=== PATIENT | female | born 1940 | race Caucasian/White ===

== ENCOUNTER 2020-12-24 10:16 | Day surgery (SDC) | payer MEDICARE, OTHER, SELFPAY ==
--- NOTE | 2020-12-20 10:56 | ANES_ITS ---
Date of service: 12/20/20 Time of Service: 10:56 Anesthesia Note Report Anesthesia Note: Referral for review of record by Preoperative nurse for upcoming cataract surgery. Reviewed [facility] chart. Reviewed referral documents from 2019 from [facility]. Patient with several longstanding systemic problems including CAD, paroxysmal Afib, COPD on chronic home O2 3- 4lpm, MALVIN with CPAP. Discussed plan with Inocencio Kruger TEACHING PASTOR, patient will be a local. Called the patient to discuss the plan, she states that her health has been stable and has recently lost about 35 pounds. I described the plan and the patient agrees, she states she normally asks for less anesthetic due to her health concerns. Patient denied any questions and agrees with the plan. Patient to be local only, she may proceed.
[2020-12-24 10:54] VITALS: BP 133/75; PULSE 59; RESP 18; TEMP 36.5; O2SAT 99
[2020-12-24] MEDS: Tropicam./Phenyleph. (1/2.5%) 5 ML BTL OS ×3 (11:02→11:12)
--- NOTE | 2020-12-24 11:10 | W.ANESPRE ---
General Info Date of Service Date Performed: 12/24/20 Height: 5 ft 3 in Weight: 110.9 kg Body Mass Index (BMI): 43.3 Surgical Procedure: Operation Date: 12/24/20 13:40 Proposed Procedures Side Surgeon p Cataract Extraction with IOL Implant Left Juan Carlos Jordan MD Meds Allergies and Home Medications Allergies Allergy/AdvReac Type Severity Reaction Status Date / Time erythromycin base Allergy Severe Other (See Unverified 12/20/20 15:20 Comment) gentamicin Allergy Severe Other (See Unverified 12/20/20 15:20 Comment) Penicillins Allergy Severe Hives Unverified 12/20/20 15:20 vancomycin Allergy Severe Other (See Unverified 12/20/20 15:20 Comment) Enviormental allergy Allergy Unknown Uncoded 12/20/20 10:07 Petroleum Smells Allergy Unknown Other (See Uncoded 12/20/20 15:20 Comment) Home Medication Medication Instructions Recorded acetaminophen 500 mg PO ONCE PRN 12/20/20 aspirin 81 mg PO DAILY 12/20/20 atorvastatin 40 mg PO DAILY 12/20/20 cholecalciferol (vitamin D3) 3,000 mcg PO DAILY 12/20/20 [Vitamin D3] cranberry 400 mg PO DAILY 12/20/20 cyanocobalamin (vitamin B-12) 1 tab PO DAILY 12/20/20 [Vitamin B-12] docusate sodium 300 mg PO DAILY 12/20/20 numraexvjbo-pizwmkhml-jbkmupjt 1 inh INHALATION DAILY 12/20/20 ipratropium-albuterol 3 ml INHALATION QID PRN 12/20/20 ketoconazole 1 applic TOPICAL BID 12/20/20 levothyroxine 25 mcg PO DAILY 12/20/20 levothyroxine 50 mcg PO DAILY 12/20/20 magnesium citrate 100 mg PO DAILY 12/20/20 mirabegron 50 mg PO DAILY 12/20/20 oxybutynin chloride 10 mg PO DAILY 12/20/20 pantoprazole 20 mg PO DAILY 12/20/20 potassium chloride 20 meq PO DAILY 12/20/20 torsemide 20 mg PO DAILY 12/20/20 verapamil 360 mg PO DAILY 12/20/20 warfarin 2.5 - 5 mg PO DIRECTED 12/20/20 albuterol 2 INHALATION PRN 12/24/20 dronedarone [Multaq] 400 mg PO BID 12/24/20 Current Visit Medications: Current Medications Generic Name Dose Route Start Last Admin Trade Name Freq PRN Reason Stop Dose Admin Acetaminophen 1,000 mg 12/24/20 06:00 Acetaminophen 500 Mg Tab PO Q4H PRN PRN Miscellaneous Medication 0 ml 12/24/20 06:00 Prednisolone 1%, Moxifloxacin 0.5%, Nepafenac 0.1% 5ml Btl OS DIRECTED FRITZ Miscellaneous Medication 0 ml 12/24/20 06:00 12/24/20 11:07 Tropicam./Phenyleph. (1/2.5%) 5 Ml Btl OS 1 drp DIRECTED FRITZ Administration Tetracaine HCl 0 ml 12/24/20 06:00 Tetracaine 0.5% 4 Ml Btl OS DIRECTED FRITZ PFSH Active Problems Active Problems: Problem Status Onset Code Nuclear sclerotic cataract of left eye H25.12 Cortical cataract of left eye H26.9 Medical History Medical History Anticoagulation goal of INR 2 to 3 Atrophic vaginitis Blood in stool CAD (coronary artery disease) Cardiac arrhythmia, unspecified CHF (congestive heart failure) Chronic cough Chronic GERD Chronic UTI Colon polyps Constipation COPD (chronic obstructive pulmonary disease) Depression Dermatitis Diabetes 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 Dysuria Elevated LFTs Emphysema of lung Encounter for comprehensive diabetic foot examination, type 1 diabetes mellitus Fracture of fifth toe, left, closed Hallux valgus Hammertoe HLD (hyperlipidemia) Hyperkeratosis Hypothyroidism Impaired gait and mobility ambulates with cane or walker Loss of balance Mixed stress and urge urinary incontinence Ocular inflammation Onychomycosis MALVIN treated with BiPAP Osteoarthritis Oxygen dependent 3 L at rest Paroxysmal A-fib Prediabetes 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 Sensorineural hearing loss Stenosis of foramen magnum Tracheobronchomalacia Trigger finger Vitamin D deficiency Surgical History Surgical History History of total left knee replacement (TKR) History of total right knee replacement (TKR) Hx of appendectomy Hx of cholecystectomy Hx of hysterectomy Hx of tonsillectomy Tobacco Smoking/Tobacco Use Status: Former Tobacco Use Alcohol Alcohol Intake: current Alcohol intake frequency: holidays/special occasions only Substance Use Substance use type: does not use Vital Signs and Lab Results Vital Signs Most Recent Vital Signs in EMR: Most Recent Vital Signs Temp Pulse Resp BP Pulse Ox 36.5 C 59 L 18 133/75 99 12/24/20 10:54 12/24/20 10:54 12/24/20 10:54 12/24/20 10:54 12/24/20 10:54 Lab Results Blood Type / Crossmatch: No Data to Display Complete Blood Count: No Data to Display Complete Metabolic Panel: No Data to Display Liver Function Panel: No Data to Display Coagulation Panel: No Data to Display Cardiac Panel: No Data to Display Arterial Blood Gas: No Data to Display Venous Blood Gas: No Data to Display Pancreas Panel: No Data to Display Thyroid Panel: No Data to Display Infectious Disease: No Data to Display Blood Cultures: No Data to Display Toxicology Panel: No Data to Display Anesthesia Assessment and Plan Anesthesia History Personal History: No History of Anesthesia Complications Family History: No Family History of Anesthesia Complications Exercise Tolerance Exercise Tolerance: Metabolic Equivalents<4 Pertinent Negatives Pertinent Negatives: No Symptoms of GERD Cardiac & Pulmonary Exam Cardiac Exam: Normal S1/S2 Heart Sounds Pulmonary Exam: Clear Bilateral Breath Sounds Airway Exam Known Difficult Airway: No Mallampati Class: 3 Mouth Opening: Normal (> 3cm) Thyromental Distance: Greater than 3 cm Neck Range of Motion: Full ROM Neck Circumference: Thick Teeth Condition: Normal Dentition ASA Classification ASA Score: ASA 3 Emergency Case?: No NPO Status NPO Status: NPO Clears >2 hours, Solids >8 hours Anesthesia Plan Resuscitation Status: Full Code Anesthesia Technique: MAC Anesthesia Airway Planned: Natural Airway Monitors Used: Standard Monitors
[2020-12-24 11:12] VITALS: BMI 43.3
[2020-12-24] MEDS: Povidone-Iodine Ophth 30 ML BTL (11:47)
[2020-12-24] MEDS: Tetracaine 0.5% 4 ML BTL OS (11:49)
[2020-12-24] MEDS: Lidocaine 2% Jelly 6 ML SYR (11:49)
[2020-12-24] MEDS: Lidocaine 1% Pres-Free 5 ML VIAL (11:54)
[2020-12-24] MEDS: Balanced Salt Soln.-PLUS 500 ML BAG (12:03)
[2020-12-24] MEDS: Duovisc Viscoelastic System EACH 1 EACH (12:05)
[2020-12-24 12:18] VITALS: BP 149/66; PULSE 63; RESP 18; TEMP 36.4; O2SAT 99
--- NOTE | 2020-12-24 12:20 | W.PM.DSUDISC ---
Discharge Plan Disposition Patient Disposition: HOME Condition: Good Discharge Details Attending Provider: Juan Carlos Jordan Primary Care Provider: Gaby Cotto Home Meds and New Rx's Prescriptions: No Action atorvastatin 40 mg tablet 40 mg PO DAILY RF: 0 ipratropium-albuterol 0.5 mg-3 mg(2.5 mg base)/3 mL Solution For Nebulization 3 ml INHALATION QID PRNRF: 0 torsemide 20 mg tablet 20 mg PO DAILY RF: 0 verapamil 360 mg capsule,ext rel. pellets 24 hr 360 mg PO DAILY RF: 0 oxybutynin chloride 10 mg Tablet Extended Release 24hr 10 mg PO DAILY RF: 0 acetaminophen 500 mg Tablet 500 mg PO ONCE PRNRF: 0 levothyroxine 25 mcg tablet 25 mcg PO DAILY RF: 0 pantoprazole 20 mg tablet,delayed release (DR/EC) 20 mg PO DAILY RF: 0 aspirin 81 mg Capsule,Delayed Release(Dr/Ec) 81 mg PO DAILY RF: 0 levothyroxine 50 mcg tablet 50 mcg PO DAILY RF: 0 warfarin 5 mg tablet 2.5 - 5 mg PO DIRECTED RF: 0 cranberry 400 mg Capsule 400 mg PO DAILY RF: 0 docusate sodium 100 mg Capsule 300 mg PO DAILY RF: 0 ketoconazole 2 % cream 1 applic TOPICAL BID RF: 0 Vitamin B-12 Tablet,Chewable 1 tab PO DAILY RF: 0 cholecalciferol (vitamin D3) [Vitamin D3] 25 mcg (1,000 unit) Tablet 3,000 mcg PO DAILY RF: 0 mirabegron 50 mg Tablet Extended Release 24 Hr 50 mg PO DAILY RF: 0 magnesium citrate 100 mg Tablet 100 mg PO DAILY RF: 0 potassium chloride 20 mEq tablet extended release 20 meq PO DAILY RF: 0 iyuhqcafwqx-buxpaaocs-nedzvvcf 100-62.5-25 mcg Blister With Device 1 inh INHALATION DAILY RF: 0 albuterol 90 mcg/actuation Aerosol 2 INHALATION PRNRF: 0 Multaq 400 mg Tablet 400 mg PO BID RF: 0 Discharge Instructions Stand Alone Forms: Post-op Topical Cataract, Press Ganey (DSU) Discharge Orders Discharge Orders: Discharge Order (Routine); Ordered 12/24/20 Ordered By: Juan Carlos Jordan DS: Diagnosis Discharge Diagnosis (1) Nuclear sclerotic cataract of left eye: Status: Resolved (2) Cortical cataract of left eye: Status: Resolved
--- NOTE | 2020-12-24 12:21 | ROE_ITS ---
Date of service: 12/24/20 Time of Service: 12:21 Operative Note Operative Note DATE OF PROCEDURE: 12/24/20 PRE-OP DIAGNOSIS: Nuclear/cortical cataract, left eye POST-OP DIAGNOSIS: same PROCEDURE: Cataract extraction using phacoemulsification with intraocular lens implant, left eye SURGEON: Juan Carlos Jordan ANESTHESIA TYPE: Local By Surgeon and MAC Refer to Anesthesia Record PATHOLOGY: none sent COMPLICATIONS: None Patient was transported to: same day Patient's condition: stable Implants: Enrique [employer]rique / [employer] Tecnis [id number] Indications: Progressive decreased vision due to cataract, left eye, with poor red reflex Procedure Description: CATARACT SURGERY OPERATIVE REPORT PREOPERATIVE DIAGNOSIS: 1. Nuclear/cortical cataract, left eye POSTOPERATIVE DIAGNOSIS: Same OPERATION: 1. Cataract extraction using phacoemulsification with posterior chamber intraocular lens implant, left eye. IOL: IOL Business Case Analyst/Model: [employer] Enrique / NEO Tecnis [id number] IOL Power: + 21.5 diopters IOL Serial Number: [id number] Optic Diameter: 6.0 mm Haptic/Overall Diameter: 13.0 mm PHACO INFO: Barrera Skigiturion Vision System with OZil and Active Fluidics Cumulative Dispersed Energy (CDE): 6.71 seconds SURGEON: Juan Carlos Jordan MD, AMAIRANI ANESTHESIA: Monitored A [facility] (MAC), with local sub-tenon's anesthetic infiltration COMPLICATIONS: None SPECIMENS: None INDICATIONS FOR PROCEDURE: The patient is a 80-year-old lady with history of progressive decreased vision in her left eye. She is noted to have a significant nuclear/cortical cataract of the left eye. The option of cataract surgery was offered to the patient and she wished to proceed. She has previously had her right eye surgery done approximately 18 months ago. PROCEDURE: The correct surgical eye was identified and marked as the left eye and the pupil was dilated in the preoperative area using mydriatics and cycloplegics. The dilated pupil size was 7.0 mm. She elected to proceed without oral sedation.. The patient was brought to the operating room where cardiopulmonary monitoring was instituted and surgical time-out was performed, confirming the correct operative eye and IOL power. Topical anesthesia was administered and ophthalmic povidone-iodine 5% was instilled into the conjunctival fornices. Lidocaine gel was applied to the cornea and the kymberly-ocular area was prepped with Betadine 10% solution and draped in the usual sterile fashion for intraocular surgery, including an aperture drape. A Tegaderm transparent film dressing was cut in half and used to cover the lashes and lid margins. Care was taken to sequester the lashes and lid margins under the Tegaderm dressing. A lid speculum was placed between the lids of the operative eye and the Jayashree-Marc operating microscope was maneuvered into position. Yuni scissors were then used to make a conjunctival buttonhole approximately 6mm posterior to the limbus in the inferonasal quadrant. Blunt dissection was carried out to expose bare sclera, and a blunt-tipped sub-tenon?s anesthesia cannula was introduced and passed posteriorly along the globe where non- preserved plain lidocaine was injected into posterior sub-Tenon?s space. A Videostripport knife was used to make a paracentesis port superiorly/superiortemporally. Intraocular phenylephrine/lidocaine was injected int the anterior chamber.. Air was then injected into the anterior chamber, followed by Vision Blue, which was painted over the anterior capsule and then irrigated out using BSS. The anterior chamber was filled with viscoelastic. A 2.4mm keratome knife was used to create a half-thickness groove at the limbus and then to construct a three-plane near-clear corneal tunnel extending 2.0mm into clear cornea at the 3:00 position. A flap was raised on the anterior caps ule and capsulorhexis forceps were used to complete a continuous curvilinear capsulorhexis of 5.0 mm. Balanced salt solution was then used to perform cortical cleaving hydrodissection and nuclear hydrodelineation until the lens could be freely rotated within the capsular bag. The lens nucleus was then disassembled and removed within the capsular bag and iris plane using phacoemulsification. Res idual cortical material was removed using the 45-degree angled silicone I/A tip with 0.3mm port. The posterior capsule was carefully polished to remove as much residual lens epithelial cells as safely possible. The capsular bag was then inflated and the anterior chamber deepened with viscoelastic. The lens implant described above was inserted into the capsular bag using the NEO [place] Injector. A Kuglen hook was used to dial the IOL into position. Residual viscoelastic was then removed first from posterior to the IOL, then from the anterior chamber using the I/A handpiece. The lens implant was noted to center nicely within the capsular bag. The incisions were stromally hydrated, and the anterior chamber was reformed using BSS. Then 0.5cc of moxifloxacin 1.0mg/ml were injected into the capsular bag and anterior chamber. The incisions were checked with a Weck spear and found to be secure. Several drops of ophthalmic povidone-iodine 5% were then applied to the eye followed by two drops of Imprimis combination prednisolone/moxifloxacin/nepafenac solution. The drapes were removed and a clear plastic protective eye shield was placed over the eye. The patient was then returned to Same Day Surgery in stable condition.
--- NOTE | 2020-12-24 12:24 | W.ANESPOSTOP ---
Postoperative Evaluation Date, Time and Location Date Performed: 12/24/20 Time Performed: 12:24 Patient Location: Day Surgery Unit Vital Signs Most Recent Imported Vital Signs: Most Recent Vital Signs Temp Pulse Resp BP Pulse Ox 36.5 C 59 L 18 133/75 99 12/24/20 10:54 12/24/20 10:54 12/24/20 10:54 12/24/20 10:54 12/24/20 10:54 Most Recent Manually Entered Vital Signs: Adult Blood Pressure: 149/66 Heart Rate: 62 Respirations: 16 Oxygen Saturation (%): 99 Temperature (C): 36.3 C Pain Score (0-10 Scale): 7 Pain Score Most Recent Pain Score: Most Recent Pain Score Pain Level 0 12/24/20 10:54 Assessment Mental Status: Awake (Alert & Oriented to Patient Baseline) Airway and Respiratory Function: Patent airway with normal (patient baseline) respiratory exam Cardiovascular Function: Hemodynamically Stable Hydration Status: Adequately Hydrated Nausea & Vomiting: No Nausea or Vomiting Pain: Pain is tolerable per patient Peripheral Nerve Block: Other (Local by Dr. Jordan)
[2020-12-24 12:25] VITALS: BP 149/66; PULSE 62; RESP 16; TEMPC 36.3; O2SAT 99
[2020-12-24] MEDS: Acetaminophen 500 MG TAB 1000 MG PO (12:29)
[2020-12-24 13:00] VITALS: BP 125/48; PULSE 64; RESP 18; TEMP 36.9; O2SAT 99
== END 2020-12-24 13:20 | disposition home or self-care (01) ==
PROVIDERS: PCP Nurse Practitioner Family; Visit Provider Ophthalmology
PROC: (CPT 66984; principal; 2020-12-24 13:30)
DX: H25.042 Posterior subcapsular polar age-related cataract, left eye (principal); E11.9 Type 2 diabetes mellitus without complications; I48.0 Paroxysmal atrial fibrillation
CPT/HCPCS: 66984; V2632